=== PATIENT | female | born 1985 | race Caucasian/White ===

== ENCOUNTER 2017-12-04 10:05 | Day surgery (SDC) | payer BC ==
[2017-12-04 10:46] VITALS: BMI 29.8
[2017-12-04 11:11] LABS: Amnisure Test No Membranes Rupture (No Rupture)
[2017-12-04 11:12] LABS: Amnisure Internal Control QC ACCEPTABLE (ACCEPTABLE)
--- NOTE | 2017-12-04 11:21 | PDOC.LDHP ---
Labor and Delivery H&P Chief complaint: loss of fluid HPI: 32 y/o G1 at 38w1d, patient of Dr. Smith, presents with ?LOF since this morning. She wasn't sure if she urinated on herself or if it was amniotic fluid , as it would leak out when she walked around. Denies regular ctx, VB, or decreased FM. ROS neg for HEENT, CV, pulm, GI, , neuro, psych, skin, musculoskeletal, or constitutional symptoms other than mentioned above. OB History Details: First , uncomplicated Current complications: none Past Medical History: None Current medications: pre-ruben vitamins Previous surgical history: other (knee) Allergies/Adverse Reactions: Allergies Allergy/AdvReac Type Severity Reaction Status Date / Time No Known Allergies Allergy Unverified 12/04/17 10:40 Social history: none - Physical Exam Vital signs reviewed and normal: yes General: NAD, resting Lungs: nonlabored breathing Abdomen: gravid Extremeties: no edema FHT: category 1 (140s, mod variability, + accels, no decels) Erda contractions every: 5-8 mins - Vaginal Exam cm dilated: 3 Effacement: 50% Station: -2 - Assessment 32 y/o G1 at 38w1d with no e/o SROM. status reassuring with reactive NST. - Plan -: D/c home with precautions. Advised to keep all appointments.
== END 2017-12-04 11:28 | disposition home or self-care (01) ==
LOC: L&D/OP 10:05
PROVIDERS: ATTEND Obstetrics & Gynecology
DX: O99.89 Other specified diseases and conditions complicating pregnancy, childbirth and the puerperium (principal); Z79.899 Other long term (current) drug therapy; Z3A.38 38 weeks gestation of pregnancy
CPT/HCPCS: 84112; 99283

== ENCOUNTER 2017-12-08 07:51 | Inpatient (IN) | payer BC ==
[2017-12-08 08:23] VITALS: BMI 29.8
[2017-12-08 09:27] LABS: Amnisure Internal Control QC ACCEPTABLE (ACCEPTABLE); Amnisure Test RUPTURE DETECTED (No Rupture)
[2017-12-08] MEDS ORDERED: Morphine 10 MG/ML VIAL SLOW IVP SCH (09:30)
[2017-12-08] MEDS ORDERED: Ondansetron ODT 8 MG TAB SL SCH (09:30)
[2017-12-08] MEDS ORDERED: NS / Oxytocin 40 units/1000ml 1,000 ML IV PRN (09:52)
[2017-12-08] MEDS ORDERED: HYDROcodone/Acetaminophen 5/325 mg Tablet PO PRN ×3 (09:52→23:51)
[2017-12-08] MEDS ORDERED: Lidocaine 1% (PF) 30 ML VIAL SC PRN (09:52)
[2017-12-08] MEDS ORDERED: Ondansetron HCl/PF 4 MG/2 ML Vial IVP PRN ×2 (09:52→23:51)
[2017-12-08] MEDS ORDERED: Ibuprofen 800 MG TAB PO PRN (09:52)
[2017-12-08] MEDS ORDERED: DISCONTINUE ALL PREVIOUS NARCOTICS FS SCH (10:00)
[2017-12-08] MEDS ORDERED: Lactated Ringer's 1,000 ML IV SCH (10:00)
[2017-12-08 10:14] LABS: Hemoglobin 13.9 g/dL (12.0-16.0); Mean Corpuscular HGB CONC 35.5 g/dL (32.0-36.0); Mean Corpuscular Hemoglobin 32.6 pg (27.0-31.0); Mean Corpuscular Volume 91.8 fl (81.0-99.0); Mean Platelet Volume 7.1 fL (7.4-10.4); Platelet Count 191 thou/uL (130-400); RBC Distribution Width 11.8 % (11.5-14.5); Red Blood Cell (RBC) Count 4.28 mill/uL (4.20-5.40); White Blood Cell (WBC) Count 15.5 thou/uL (4.8-10.8)
[2017-12-08 10:59] LABS: Syphilis Antibody Nonreactive (Nonreactive); Syphilis Antibody Index 0.08 S/CO (<1.00 Non-Reactive)
[2017-12-08 11:01] LABS: Hep B Surf Ag Non-Reactive S/CO (NonReactive)
[2017-12-08] MEDS ORDERED: Morphine 4 MG/ML VIAL SLOW IVP SCH (12:15)
[2017-12-08] MEDS ORDERED: LR 500 ML/Oxytocin 10 units 500 ML IV SCH (12:45)
[2017-12-08] MEDS: Dextrose 5%-Lactated Ringers 1,000 ML IV SCH ×2 (13:01→17:58)
[2017-12-08] MEDS: Bupivacaine 0.5% 20 ML, fentaNYL Citrate/PF 400 MCG in Sodium Chloride 0.9% 72 ML EPIDURAL SCH ×2 (13:19→18:54)
[2017-12-08] MEDS: Lactated Ringer's 1,000 ML IV SCH ×2 (13:21→18:35)
[2017-12-08] MEDS ORDERED: Lidocaine 1% (PF) 30 ML VIAL ONE (20:22)
--- NOTE | 2017-12-08 20:59 | PDOC.OPDEL ---
OB Operative/Delivery Note Delivery Dr/Surgeon: Luis Pre-Delivery Diagnosis: active labor Procedure/Post Delivery Dx: spontaneous vaginal delivery Weeks gestation: 38 Anesthesia: epidural (and 3 cc local with epi for r labial skin tag) - Findings A Sex: male Weight: 0 oz (pending delivery 2039) - 1 min: 8 - 5 min: 9 - Additional Findings/Plan Placenta delivered: spontaneous Repaired Obstetrical Laceration: 2nd degree (also excision of 8mm peduculated skin tag, repaired w 30 chromic. lac repair w 20 chromic) Estimated blood loss: 300 Post delivery plan: routine recovery
[2017-12-08] MEDS ORDERED: NS / Oxytocin 40 units/1000ml 1,000 ML IV SCH (23:51)
[2017-12-08] MEDS ORDERED: Zolpidem Tartrate 5 MG TAB PO PRN (23:51)
[2017-12-08] MEDS ORDERED: Preparation H Ointment 28 GM TUBE PR PRN (23:51)
[2017-12-08] MEDS ORDERED: Lanolin Ointment 7 GM TUBE TOP PRN (23:51)
[2017-12-08] MEDS ORDERED: Milk Of Magnesia 30 ML UDCUP PO PRN (23:51)
[2017-12-08] MEDS ORDERED: Bisacodyl 10 MG SUPP PR PRN (23:51)
[2017-12-08] MEDS ORDERED: Promethazine HCl 25 MG/ML VIAL IM PRN (23:51)
[2017-12-08] MEDS ORDERED: Benzocaine/Menthol 20-0.5% 60 ML CAN TOP PRN (23:51)
[2017-12-08] MEDS ORDERED: diphenhydrAMINE 25 MG CAP PO PRN (23:51)
[2017-12-08] MEDS ORDERED: Ibuprofen 800 MG TAB PO SCH (23:59)
[2017-12-09] MEDS ORDERED: Adacel (T-DAP) 0.5 ML VIAL IM ONE (01:00)
[2017-12-09] MEDS: HYDROcodone/Acetaminophen 5/325 mg Tablet PO PRN ×2 (03:21→20:23)
[2017-12-09] MEDS: Ibuprofen 800 MG TAB PO SCH ×3 (05:46→21:46)
[2017-12-09] MEDS ORDERED: Promethazine HCl 25 MG/ML VIAL IM PRN (05:52)
[2017-12-09] MEDS ORDERED: ePHEDrine/0.9% NaCl/PF SYRINGE 50 mg/10 ml SLOW IVP PRN (05:52)
[2017-12-09] MEDS ORDERED: diphenhydrAMINE 50 MG/ML VIAL IVP PRN (05:52)
[2017-12-09] MEDS ORDERED: Lactated Ringer's 500 ML IV PRN (05:52)
[2017-12-09] MEDS ORDERED: Acetaminophen 325 MG TAB PO PRN (05:52)
[2017-12-09] MEDS ORDERED: Ondansetron HCl/PF 4 MG/2 ML Vial IVP PRN (05:52)
[2017-12-09] MEDS ORDERED: Eucerin (Mineral Oil/Petrolatum,White) 30 gm Jar TOP PRN (05:52)
[2017-12-09] MEDS ORDERED: Naloxone HCl 0.4 mg/ml Vial IVP PRN ×2 (05:52)
[2017-12-09] MEDS ORDERED: Communication Order-Pharmacy FS SCH (06:00)
[2017-12-09] MEDS ORDERED: Fentanyl 4mcg/Marcaine 0.1% Cassette 100 ML EPIDURAL SCH (06:00)
--- NOTE | 2017-12-09 08:00 | PRG ---
DATE OF SERVICE: 12/09/2017 The patient is day 1, status post a term spontaneous vaginal delivery with Dr. Smith. Sh azael reports that she is tolerating p.o., voiding on her own, having decreased lochia and good pain cont rol. PHYSICAL EXAMINATION: VITAL SIGNS: Blood pressure is 120/68, temperature 97.9, pulse of 88, respiratory rate of 20. GENERAL: She appears to be in no acute distress. She is alert and oriented, cooperative and pleasan t to interact with. ABDOMEN: Fundus is firm at the umbilicus. EXTREMITIES: Nontender with minimal edema and symmetrical. ASSESSMENT AND PLAN: The patient is day 1, status post a term spontaneous vaginal deliver y. We will have continued care today, anticipate discharge tomorrow.
[2017-12-09] MEDS: Docusate Calcium (SURFAK) 240 MG CAP PO SCH ×2 (08:20→21:45)
[2017-12-09] MEDS: Prenatal Vitamin 1 TAB PO SCH (08:20)
[2017-12-09] MEDS ORDERED: Bupivacaine HCl 0.5%/Epinephrine 1:200,000/PF 30 ml Vial ONE (17:07)
[2017-12-09] MEDS ORDERED: Bupivacaine/Epinephrine 0.25% 30 ML VIAL ONE (17:07)
[2017-12-09 21:33] VITALS: TEMP 98.3
[2017-12-10] MEDS: Ibuprofen 800 MG TAB PO SCH (06:17)
[2017-12-10] MEDS: Docusate Calcium (SURFAK) 240 MG CAP PO SCH (08:37)
[2017-12-10] MEDS: Prenatal Vitamin 1 TAB PO SCH (08:37)
[2017-12-10 08:40] VITALS: BP 101/55
--- NOTE | 2017-12-10 11:41 | PDOC.PP ---
Post Progress Note Post Day #: 2 PO intake tolerated: yes Flatus: yes Ambulation: yes Vital Signs (12 hours) Temp Pulse Resp BP 12/10/17 08:40 98.3 F 57 L 16 12/10/17 08:39 98.3 F 57 L 16 101/55 L Weight Weight 185 lb - Physical Examination General: NAD Cardiovascular: no m/r/g, RRR Respiratory: clear to auscultation bilaterally Abdominal: + bowel sounds, lochia Extremities: negative homans (B) Neurological: no gross focal deficits Psychiatric: A&Ox3, normal affect Result Diagrams: 12/08/17 09:13 Additional Labs: Post Labs Blood Type A POSITIVE 12/08/17 09:13 Hep Bs Antigen Non-Reactive S/CO (NonReactive) 12/08/17 09:13 (1) Active labor at term Code(s): [id number] - Status: Acute - Assessment/Plan doing well. desires dc
== END 2017-12-10 13:49 | disposition home or self-care (01) | DRG 775 ==
LOC: L&D/OP 07:51 → L&D 09:34 → 3SW 23:57
PROVIDERS: ADMIT Obstetrics & Gynecology; ATTEND Obstetrics & Gynecology
PROC: 10E0XZZ Delivery of Products of Conception, External Approach (ICD-10-PCS; principal; 2017-12-08)
PROC: 0KQM0ZZ Repair Perineum Muscle, Open Approach (ICD-10-PCS; 2017-12-08)
PROC: 0HBAXZZ Excision of Inguinal Skin, External Approach (ICD-10-PCS; 2017-12-08)
DX: O70.1 Second degree perineal laceration during delivery (principal); Z37.0 Single live birth; Z3A.38 38 weeks gestation of pregnancy; L91.8 Other hypertrophic disorders of the skin; O75.89 Other specified complications of labor and delivery
CPT/HCPCS: 51702; 76815; 84112; 85027; 86780; 86850; 86900; 86901; 87340; 88305; 99285; J0670; J2001; J2270; J2590; J3010; J3490; J7050; J7120

== ENCOUNTER → 2019-05-28 13:00 | Inpatient (IN) | payer BC, OTHER, SELFPAY ==
[2019-05-26 19:49] VITALS: BMI 29.0
[2019-05-26 20:20] LABS: Mean Corpuscular Hemoglobin 31.3 pg (27.0-31.0); Mean Platelet Volume 6.5 fL (7.4-10.4); Platelet Count 197 thou/uL (130-400); RBC Distribution Width 11.8 % (11.5-14.5); Red Blood Cell (RBC) Count 3.83 mill/uL (4.20-5.40); White Blood Cell (WBC) Count 14.7 thou/uL (4.8-10.8)
[2019-05-26] MEDS: Lactated Ringer's 1,000 ML IV SCH (20:32)
[2019-05-26] MEDS: Misoprostol 100 MCG TAB VAG SCH (20:35)
[2019-05-26] MEDS: NS w/ Oxytocin 10 units 500 ML IV SCH (20:39)
[2019-05-26 21:00] LABS: Syphilis Antibody Nonreactive (Nonreactive); Syphilis Antibody Index 0.11 S/CO (<1.00 Non-Reactive)
[2019-05-26 23:09] LABS: HBSAg Index 0.23 S/CO (0-0.99); Hep B Surf Ag Non-Reactive S/CO (NonReactive)
[2019-05-27] MEDS: Misoprostol 100 MCG TAB VAG SCH ×3 (00:20→16:34)
[2019-05-27] MEDS: Lactated Ringer's 1,000 ML IV SCH (01:45)
[2019-05-27] MEDS: NS w/ Oxytocin 10 units 500 ML IV SCH (01:50)
--- NOTE | 2019-05-27 07:36 | PDOC.OPDEL ---
OB Operative/Delivery Note Delivery Dr/Surgeon: Luis KELLER Pre-Delivery Diagnosis: active labor, elective induction Procedure/Post Delivery Dx: spontaneous vaginal delivery Weeks gestation: 39 Anesthesia: epidural - Findings A Sex: male Weight: 0 oz (wt pending) - 1 min: 9 - 5 min: 9 - Additional Findings/Plan Placenta delivered: spontaneous Repaired Obstetrical Laceration: 1st degree (repaired with 2/0 chromic in usual manner.) Estimated blood loss: qbl 100 Compilations/Other Findings: vigarous male at ~710 over 1 deg laceration placed on matl abd. delayed uc clamping. no complications Post delivery plan: routine recovery
[2019-05-27] MEDS: Prenatal Vitamin 1 TAB PO SCH (10:58)
[2019-05-27] MEDS: Docusate Calcium (SURFAK) 240 MG CAP PO SCH ×2 (10:58→20:05)
[2019-05-27] MEDS: Ibuprofen 800 MG TAB PO SCH ×3 (11:02→20:05)
[2019-05-28] MEDS: Ibuprofen 800 MG TAB PO SCH (04:17)
[2019-05-28 08:15] VITALS: BP 102/52; TEMP 97.8
[2019-05-28] MEDS: Docusate Calcium (SURFAK) 240 MG CAP PO SCH (09:00)
[2019-05-28] MEDS: Prenatal Vitamin 1 TAB PO SCH (09:00)
[~2019-05-28 13:00] MED LIST: Acetaminophen 325 MG TAB PO PRN; Adacel (T-DAP) 0.5 ML SYRINGE IM ONE; Benzocaine-Menthol 82.5 ML CAN TOP PRN; Bisacodyl 10 MG SUPP PR PRN; Bupivacaine HCl 0.5%/Epinephrine 1:200,000/PF 30 ml Vial ONE; Butorphanol Tartrate 1 MG/ML VIAL SLOW IVP PRN; Communication Order-Pharmacy FS SCH; Docusate Calcium (SURFAK) 240 MG CAP PO SCH; Fentanyl 4 mcg/Bup 0.1% Cadd 100 ML ONE; Fentanyl 4 mcg/Bupivacaine 0.1% Cassette 100 ML EPIDURAL SCH; HYDROcodone/Acetaminophen 5/325 mg Tablet PO PRN; Ibuprofen 800 MG TAB PO PRN; Lactated Ringer's 1,000 ML IV SCH; Lactated Ringer's 500 ML IV PRN; Lanolin Ointment 7 GM TUBE TOP PRN; Lidocaine 1% (PF) 30 ML VIAL ONE; Lidocaine 1% (PF) 30 ML VIAL SC PRN; Milk Of Magnesia 30 ML UDCUP PO PRN; NS / Oxytocin 40 units/1000ml 1,000 ML IV PRN; NS / Oxytocin 40 units/1000ml 1,000 ML IV SCH; NS / Oxytocin 40 units/1000ml 1,000 ML ONE; Naloxone HCl 0.4 mg/ml Vial IVP PRN; Ondansetron PF 4 MG/2 ML Vial IVP PRN; Prenatal Vitamin 1 TAB PO SCH; Preparation H Ointment 28 GM TUBE PR PRN; Promethazine HCl 25 MG/ML VIAL IM PRN; Zolpidem Tartrate 5 MG TAB PO PRN; diphenhydrAMINE 25 MG CAP PO PRN; diphenhydrAMINE 50 MG/ML VIAL IVP PRN; ePHEDrine/0.9% NaCl/PF SYRINGE 50 mg/10 ml SLOW IVP PRN; hydrALAZINE 20 MG/ML VIAL SLOW IVP PRN
== END | disposition home or self-care (01) | DRG 807 ==
LOC: L&D 05-26 19:10 → 3SW 05-27 10:56
PROVIDERS: ADMIT Obstetrics & Gynecology; ATTEND Obstetrics & Gynecology
PROC: 10E0XZZ Delivery of Products of Conception, External Approach (ICD-10-PCS; principal; 2019-05-27)
PROC: 3E033VJ Introduction of Other Hormone into Peripheral Vein, Percutaneous Approach (ICD-10-PCS; 2019-05-27)
PROC: 3E0P7VZ Introduction of Hormone into Female Reproductive, Via Natural or Artificial Opening (ICD-10-PCS; 2019-05-27)
PROC: 0HQ9XZZ Repair Perineum Skin, External Approach (ICD-10-PCS; 2019-05-27)
DX: O70.0 First degree perineal laceration during delivery (principal); Z37.0 Single live birth; Z3A.39 39 weeks gestation of pregnancy
CPT/HCPCS: 36415; 51702; 85027; 86780; 86850; 86900; 86901; 87340; J0670; J2001; J2590

== ENCOUNTER 2020-07-10 14:13 | Emergency (ER) | payer BC, OTHER ==
[~2020-07-10 14:13] MED LIST changes: -Acetaminophen 325 MG TAB PO PRN; -Adacel (T-DAP) 0.5 ML SYRINGE IM ONE; -Benzocaine-Menthol 82.5 ML CAN TOP PRN; -Bisacodyl 10 MG SUPP PR PRN; -Bupivacaine HCl 0.5%/Epinephrine 1:200,000/PF 30 ml Vial ONE; -Butorphanol Tartrate 1 MG/ML VIAL SLOW IVP PRN; -Communication Order-Pharmacy FS SCH; -Docusate Calcium (SURFAK) 240 MG CAP PO SCH; -Fentanyl 4 mcg/Bup 0.1% Cadd 100 ML ONE; -Fentanyl 4 mcg/Bupivacaine 0.1% Cassette 100 ML EPIDURAL SCH; -HYDROcodone/Acetaminophen 5/325 mg Tablet PO PRN; -Ibuprofen 800 MG TAB PO PRN; +Iopamidol-370 76% 500 ML 1 ML ONE; -Lactated Ringer's 1,000 ML IV SCH; -Lactated Ringer's 500 ML IV PRN; -Lanolin Ointment 7 GM TUBE TOP PRN; -Lidocaine 1% (PF) 30 ML VIAL ONE; -Lidocaine 1% (PF) 30 ML VIAL SC PRN; -Milk Of Magnesia 30 ML UDCUP PO PRN; -NS / Oxytocin 40 units/1000ml 1,000 ML IV PRN; -NS / Oxytocin 40 units/1000ml 1,000 ML IV SCH; -NS / Oxytocin 40 units/1000ml 1,000 ML ONE; -Naloxone HCl 0.4 mg/ml Vial IVP PRN; -Ondansetron PF 4 MG/2 ML Vial IVP PRN; -Prenatal Vitamin 1 TAB PO SCH; -Preparation H Ointment 28 GM TUBE PR PRN; -Promethazine HCl 25 MG/ML VIAL IM PRN; -Zolpidem Tartrate 5 MG TAB PO PRN; -diphenhydrAMINE 25 MG CAP PO PRN; -diphenhydrAMINE 50 MG/ML VIAL IVP PRN; -ePHEDrine/0.9% NaCl/PF SYRINGE 50 mg/10 ml SLOW IVP PRN; -hydrALAZINE 20 MG/ML VIAL SLOW IVP PRN
[2020-07-10] MEDS ORDERED: Morphine 4 MG/ML VIAL ONE (14:49)
[2020-07-10] MEDS ORDERED: Dexamethasone 10 MG/ML VIAL ONE (14:49)
[2020-07-10] MEDS ORDERED: Ondansetron PF 4 MG/2 ML Vial ONE (14:49)
[2020-07-10] MEDS ORDERED: Clindamycin/D5W 900 mg/50 ml Premix Bag ONE (14:49)
[2020-07-10 15:03] LABS: Hemoglobin 13.4 g/dL (12.0-16.0); Mean Corpuscular HGB CONC 34.8 g/dL (32.0-36.0); Mean Corpuscular Hemoglobin 31.9 pg (27.0-31.0); Mean Corpuscular Volume 91.7 fL (78.0-98.0); Mean Platelet Volume 6.8 fL (7.4-10.4); Platelet Count 207 thou/uL (130-400); RBC Distribution Width 11.4 % (11.5-14.5); Red Blood Cell (RBC) Count 4.19 mill/uL (4.20-5.40); White Blood Cell (WBC) Count 15.5 thou/uL (4.8-10.8)
[2020-07-10 15:04] LABS: BHCG - Serum Negative (NEGATIVE)
[2020-07-10 15:05] LABS: Pregs Control Background? CLEAR/WHITE (CLR/WHITE); Pregs Control Bar Appear? YES (CONTROL BAR)
[2020-07-10] MEDS ORDERED: Acetaminophen 500 MG TAB ONE (15:10)
[2020-07-10 15:22] LABS: ALT (SGPT) 11 U/L (8-55); AST (SGOT) 12 U/L (5-34); Alkaline Phosphatase 60 U/L (40-110); Anion Gap 13 mmol/L (10-20); BUN (Urea Nitrogen) 8 mg/dL (7.0-18.7); Bilirubin, Total 0.5 mg/dL (0.2-1.2); Calc. Creatinine Clearance 0 mL/min (70-130); Calcium 8.6 mg/dL (7.8-10.44); Carbon Dioxide 24 mmol/L (22-29); Chloride 102 mmol/L (98-107); Globulin 3.6 g/dL (2.4-3.5); Glucose 100 mg/dL (70-105); Potassium 3.7 mmol/L (3.5-5.1); Protein, Total 7.6 g/dL (6.0-8.3); Sodium 135 mmol/L (136-145)
[2020-07-10 15:26] LABS: Band 6 % (5-11); Eosinophils 1 % (0-10); Lymphocytes 8 % (21-51); MDiff Complete? YES; Monocytes 1 % (0-10); Neutrophil 83 % (42-75); Platelet Morphology Comment Appears Adequate; RBC Morphology Normal
--- NOTE | 2020-07-10 15:51 | CT ---
CT OF THE SOFT TISSUES OF THE NECK WITH IV CONTRAST INDICATION: History of dental abscess and right-sided mouth pain COMPARISON: None FINDINGS: Aerodigestive tract: There is slight hypertrophy of the palatine tonsils, right greater than left. N o drainable fluid collection is evident. Parotids/Submandibular/Thyroid glands: Normal. Lymph nodes: No pathologically enlarged lymph nodes. Lung Apices: Clear. Bones: No acute osseous abnormality. Incidentals: There is mucosal thickening with air-fluid level within the left maxillary sinus. There is some hyperdense material along the inferior aspect of the left maxillary sinus. There is a mucus retention cyst within the inferior aspect of the right maxillary sinus. The ethmoid air cells d emonstrate mild mucosal thickening. The sphenoid sinuses is clear. Mastoid air cells are clear. No periapical lucency is seen involving the maxillary or mandibular teeth. IMPRESSION: 1. Air-fluid level within the left maxillary sinus with a small focus of hyperdensity along the infer ior aspect of the left maxillary sinus. This may reflect an acute sinusitis with inspissated secretions; however, acute sinusitis with a fungal infection cannot be entirely excluded. 2. Slight prominence of the palatine tonsils, right greater than left, is suspicious for tonsillitis. No drainable peritonsillar fluid collection is evident. 3. No definite periapical lucency is seen involving the maxillary or mandibular teeth.
== END 2020-07-10 17:57 | disposition home or self-care (01) ==
LOC: ERS 14:13
DX: J03.90 Acute tonsillitis, unspecified (principal); Z79.899 Other long term (current) drug therapy
CPT/HCPCS: 36415; 70491; 80053; 83605; 84703; 85025; 87040; 96365; 96366; 96375; J1100; J2270; J2405; J3490; Q9967